=== PATIENT | female | born 1985 | race Caucasian/White ===

== ENCOUNTER → 2016-04-20 | Outpatient (CLI) | payer BC ==
[~2016-04-20] MED LIST: DOXY-300 PO; METH0.2T39 PO; MTR600X PO; NORE-18 PO; ONDA4TAB10 SL; OXYC-57 PO; PRENTAB26 PO
== END | disposition home or self-care (01) ==
LOC: C.LAB1850 11:04
PROVIDERS: ATTEND Obstetrics & Gynecology
DX: Z32.01 Encounter for pregnancy test, result positive (principal)

== ENCOUNTER → 2016-05-11 | Outpatient (CLI) | payer BC ==
[2016-05-11 14:23] LABS: URINE APPEARANCE CLOUDY (CLEAR); URINE BILIRUBIN NEG (NEG); URINE COLOR DK YELLOW; URINE EPITHELIAL CELL AUTO >30 /lpf (0-5); URINE NITRITE NEG (NEG); URINE PH 6.5 (4.5-7.5); URINE SPECIFIC GRAVITY 1.023 (1.000-1.030); UROBILINOGEN NEG (NEG)
[2016-05-11 14:26] LABS: MANUAL MICROSCOPIC REQUIRED? NO; REVIEW REQ? NO
== END | disposition home or self-care (01) ==
LOC: C.LABSPEC 13:38
PROVIDERS: ATTEND Obstetrics & Gynecology
DX: O09.299 Supervision of pregnancy with other poor reproductive or obstetric history, unspecified trimester (principal)

== ENCOUNTER → 2016-05-18 | Outpatient (CLI) | payer BC ==
[2016-05-21 01:54] LABS: CHLAMYDIA TRACH RNA*** NOT DETECTED (NOT DETECTED); GC (NEIS GONORRHOEAE)RNA** NOT DETECTED (NOT DETECTED)
== END | disposition home or self-care (01) ==
LOC: C.LABSPEC 17:04
PROVIDERS: ATTEND Obstetrics & Gynecology
DX: O09.00 Supervision of pregnancy with history of infertility, unspecified trimester (principal); Z3A.00 Weeks of gestation of pregnancy not specified

== ENCOUNTER → 2016-05-18 | Outpatient (CLI) | payer BC ==
[2016-05-18 14:43] LABS: BASO % 0.3 %; BASO ABS # 0.03 K/uL (0-0.2); COMPLETE YES; EOS % 3.2 %; HEMATOCRIT 39.5 % (37-47); IG% 0.2 %; LYMPH % 21.9 %; MEAN CELL VOLUME 85.3 fL (80-100); MEAN CORPUSCULAR HEMOGLOBIN 28.5 pg (25-34); MEAN CORPUSCULAR HGB CONC 33.4 g/dl (32-36); MEAN PLATELET VOLUME 13.6 fL (7.4-10.4); MONO % 8.1 %; NEUT % 66.3 %; PLATELET COUNT 186 K/uL (130-400); RED BLOOD COUNT 4.63 M/uL (4.2-5.4); WHITE BLOOD COUNT 9.58 K/uL (4.8-10.8)
== END | disposition home or self-care (01) ==
LOC: C.LAB1850 12:37
PROVIDERS: ATTEND Obstetrics & Gynecology
DX: O09.00 Supervision of pregnancy with history of infertility, unspecified trimester (principal); Z3A.00 Weeks of gestation of pregnancy not specified

== ENCOUNTER → 2016-06-07 | Outpatient (CLI) | payer BC ==
[2016-06-07 09:26] LABS: PATIENT HEIGHT 165.1 cm
[2016-06-07 10:13] LABS: URINE TOTAL PROTEIN 9.6 mg/dl (0-11.9)
[2016-06-07 10:20] LABS: URINE TOTAL PROTEIN CALC 105.6 mg/24 hr (0-149.1)
[2016-06-07 10:21] LABS: CREATININE 0.66 mg/dl (0.6-1.2)
== END ==
LOC: C.LAB 09:05
PROVIDERS: ATTEND Obstetrics & Gynecology
DX: O26.90 Pregnancy related conditions, unspecified, unspecified trimester (principal); Z3A.00 Weeks of gestation of pregnancy not specified

== ENCOUNTER → 2016-07-14 | Outpatient (CLI) | payer BC ==
[2016-07-14 13:43] LABS: GTGD 50 Grams
== END | disposition home or self-care (01) ==
LOC: C.LAB1850 09:57
PROVIDERS: ATTEND Obstetrics & Gynecology
DX: Z34.82 Encounter for supervision of other normal pregnancy, second trimester (principal)

== ENCOUNTER → 2016-10-02 | Outpatient (CLI) | payer BC ==
[2016-10-02 15:44] LABS: HEMATOCRIT 35.1 % (37-47)
[2016-10-02 16:37] LABS: GTGD 50 Grams
== END | disposition home or self-care (01) ==
LOC: C.LAB1850 13:47
PROVIDERS: ATTEND Obstetrics & Gynecology
DX: Z34.83 Encounter for supervision of other normal pregnancy, third trimester (principal)

== ENCOUNTER → 2016-10-02 | Outpatient (CLI) | payer BC ==
[2016-10-02 16:42] LABS: URINE APPEARANCE TURBID (CLEAR); URINE BILIRUBIN NEG (NEG); URINE COLOR DK YELLOW; URINE EPITHELIAL CELL AUTO >30 /lpf (0-5); URINE NITRITE NEG (NEG); URINE SPECIFIC GRAVITY 1.021 (1.000-1.030); UROBILINOGEN NEG (NEG)
[2016-10-02 16:49] LABS: MANUAL MICROSCOPIC REQUIRED? NO; REVIEW REQ? NO
== END | disposition home or self-care (01) ==
LOC: C.LABSPEC 15:57
PROVIDERS: ATTEND Obstetrics & Gynecology
DX: Z34.83 Encounter for supervision of other normal pregnancy, third trimester (principal)

== ENCOUNTER → 2016-10-10 | Outpatient (CLI) | payer BC | END | disposition home or self-care (01) | LOC: C.LAB 07:00 | PROVIDERS: ATTEND Obstetrics & Gynecology | DX: O28.1 Abnormal biochemical finding on antenatal screening of mother (principal); Z3A.00 Weeks of gestation of pregnancy not specified ==

== ENCOUNTER → 2016-10-31 | Outpatient (CLI) | payer BC ==
[2016-10-31 09:45] LABS: PATIENT HEIGHT 165.1 cm
[2016-10-31 10:05] LABS: MEAN CORPUSCULAR HGB CONC 32.8 g/dl (32-36)
[2016-10-31 10:17] LABS: MEAN CELL VOLUME 88.2 fL (80-100); MEAN CORPUSCULAR HEMOGLOBIN 28.9 pg (25-34); RED BLOOD COUNT 4.08 M/uL (4.2-5.4); WHITE BLOOD COUNT 10.97 K/uL (4.8-10.8)
[2016-10-31 10:32] LABS: URINE TOTAL PROTEIN 10.7 mg/dl (0-11.9)
[2016-10-31 10:36] LABS: PLATELET COUNT 112 K/uL (130-400)
[2016-10-31 10:37] LABS: BASO % 0.2 %; BASO ABS # 0.02 K/uL (0-0.2); COMPLETE YES; IG% 0.6 %; LARGE PLATELETS 1+; LYMPH % 14.7 %; LYMPH ABS # 1.61 K/uL (1.2-3.4); MONO % 4.6 %; NEUT % 78.9 %; PLT ESTIMATE NORMAL
[2016-10-31 10:44] LABS: URIC ACID 4.5 mg/dl (2.6-7.2)
[2016-10-31 11:22] LABS: CREATININE 0.7 mg/dl (0.6-1.2)
== END | disposition home or self-care (01) ==
LOC: C.LAB 09:30
PROVIDERS: ATTEND Obstetrics & Gynecology
DX: Z87.59 Personal history of other complications of pregnancy, childbirth and the puerperium (principal)

== ENCOUNTER → 2016-11-03 | Outpatient (CLI) | payer BC ==
[2016-11-03 16:08] LABS: ALT/SGPT 18 U/L (12-78); BLOOD UREA NITROGEN 8 mg/dl (7-18); BUN/CREATININE RATIO 11.4 (10-20); CALCIUM 9.2 mg/dl (8.5-10.1); CARBON DIOXIDE 24 mmol/L (21-32); CHLORIDE 106 mmol/L (98-107); CREATININE 0.73 mg/dl (0.60-1.20); GLUCOSE 84 mg/dl (70-99); POTASSIUM 3.9 mmol/L (3.5-5.1); SODIUM 138 mmol/L (136-145); URIC ACID 4.9 mg/dl (2.6-7.2)
[2016-11-03 16:12] LABS: ALB/GLOB RATIO 0.6 (0.9-2); ALKALINE PHOSPHATASE 127 U/L (45-117); AST/SGOT 16 U/L (15-37)
[2016-11-03 16:15] LABS: HEMATOCRIT 36.4 % (37-47); MEAN CELL VOLUME 87.3 fL (80-100); MEAN CORPUSCULAR HEMOGLOBIN 28.3 pg (25-34); MEAN CORPUSCULAR HGB CONC 32.4 g/dl (32-36); PLATELET COUNT 117 K/uL (130-400); RED BLOOD COUNT 4.17 M/uL (4.2-5.4); WHITE BLOOD COUNT 12.75 K/uL (4.8-10.8)
[2016-11-03 16:16] LABS: BASO % 0.2 %; BASO ABS # 0.02 K/uL (0-0.2); COMPLETE YES; EOS % 1.3 %; LYMPH % 16.2 %; LYMPH ABS # 2.06 K/uL (1.2-3.4); MONO % 8.7 %; NEUT % 72.6 %; PLT ESTIMATE NORMAL
== END | disposition home or self-care (01) ==
LOC: C.LAB1850 14:31
PROVIDERS: ATTEND Obstetrics & Gynecology
DX: Z87.59 Personal history of other complications of pregnancy, childbirth and the puerperium (principal)

== ENCOUNTER → 2016-11-09 | Outpatient (CLI) | payer BC ==
[2016-11-09 09:40] LABS: HEMATOCRIT 38.1 % (37-47); MEAN CELL VOLUME 88.2 fL (80-100); MEAN CORPUSCULAR HEMOGLOBIN 28.2 pg (25-34); RED BLOOD COUNT 4.32 M/uL (4.2-5.4); WHITE BLOOD COUNT 12.61 K/uL (4.8-10.8)
[2016-11-09 09:54] LABS: ALT/SGPT 19 U/L (12-78); AST/SGOT 16 U/L (15-37); BLOOD UREA NITROGEN 10 mg/dl (7-18); BUN/CREATININE RATIO 13.2 (10-20); CALCIUM 8.9 mg/dl (8.5-10.1); CARBON DIOXIDE 23 mmol/L (21-32); CHLORIDE 106 mmol/L (98-107); CREATININE 0.73 mg/dl (0.60-1.20); GLUCOSE 129 mg/dl (70-99); POTASSIUM 4.2 mmol/L (3.5-5.1); SODIUM 137 mmol/L (136-145)
[2016-11-09 09:57] LABS: ALB/GLOB RATIO 0.6 (0.9-2); ALKALINE PHOSPHATASE 141 U/L (45-117); URIC ACID 4.9 mg/dl (2.6-7.2)
[2016-11-09 09:59] LABS: PLATELET COUNT 119 K/uL (130-400)
[2016-11-09 10:03] LABS: BASO % 0.2 %; BASO ABS # 0.02 K/uL (0-0.2); COMPLETE YES; EOS % 1.5 %; IG% 0.7 %; LYMPH % 14.5 %; LYMPH ABS # 1.83 K/uL (1.2-3.4); MONO % 4.7 %; NEUT % 78.4 %; PLT ESTIMATE DECREASED
== END | disposition home or self-care (01) ==
LOC: C.LAB1850 07:53
PROVIDERS: ATTEND Obstetrics & Gynecology
DX: Z87.59 Personal history of other complications of pregnancy, childbirth and the puerperium (principal)

== ENCOUNTER → 2016-11-16 | Outpatient (CLI) | payer BC ==
[2016-11-16 09:39] LABS: MEAN CORPUSCULAR HGB CONC 32.2 g/dl (32-36)
[2016-11-16 09:57] LABS: ALT/SGPT 18 U/L (12-78); BLOOD UREA NITROGEN 10 mg/dl (7-18); BUN/CREATININE RATIO 11.8 (10-20); CARBON DIOXIDE 23 mmol/L (21-32); CHLORIDE 107 mmol/L (98-107); CREATININE 0.82 mg/dl (0.60-1.20); GLUCOSE 108 mg/dl (70-99); POTASSIUM 3.9 mmol/L (3.5-5.1); SODIUM 140 mmol/L (136-145)
[2016-11-16 10:00] LABS: ALB/GLOB RATIO 0.6 (0.9-2); ALKALINE PHOSPHATASE 144 U/L (45-117); AST/SGOT 17 U/L (15-37); URIC ACID 5.6 mg/dl (2.6-7.2)
[2016-11-16 10:11] LABS: MEAN CELL VOLUME 87.7 fL (80-100); MEAN CORPUSCULAR HEMOGLOBIN 28.2 pg (25-34); RED BLOOD COUNT 4.22 M/uL (4.2-5.4); WHITE BLOOD COUNT 10.73 K/uL (4.8-10.8)
[2016-11-16 10:16] LABS: BASO % 0.1 %; BASO ABS # 0.01 K/uL (0-0.2); COMPLETE YES; EOS % 1.7 %; GIANT PLATELETS 1+; IG% 0.9 %; LARGE PLATELETS 2+; LYMPH % 16.8 %; MONO % 4.8 %; NEUT % 75.7 %; PLATELET COUNT 99 K/uL (130-400); PLT ESTIMATE DECREASED
== END | disposition home or self-care (01) ==
LOC: C.LAB1850 08:03
PROVIDERS: ATTEND Obstetrics & Gynecology
DX: Z87.59 Personal history of other complications of pregnancy, childbirth and the puerperium (principal)

== ENCOUNTER → 2016-11-21 | Outpatient (CLI) | payer BC ==
[2016-11-21 12:46] LABS: MEAN CORPUSCULAR HGB CONC 31.8 g/dl (32-36)
[2016-11-21 13:13] LABS: HEMATOCRIT 37.7 % (37-47); MEAN CELL VOLUME 87.5 fL (80-100); MEAN CORPUSCULAR HEMOGLOBIN 27.8 pg (25-34); RED BLOOD COUNT 4.31 M/uL (4.2-5.4); WHITE BLOOD COUNT 11.74 K/uL (4.8-10.8)
[2016-11-21 13:27] LABS: PLATELET COUNT 96 K/uL (130-400); PLT ESTIMATE DECREASED
== END | disposition home or self-care (01) ==
LOC: C.LAB 09:57
PROVIDERS: ATTEND Obstetrics & Gynecology
DX: O99.113 Other diseases of the blood and blood-forming organs and certain disorders involving the immune mechanism complicating pregnancy, third trimester (principal); Z3A.00 Weeks of gestation of pregnancy not specified

== ENCOUNTER → 2016-11-27 | Outpatient (CLI) | payer BC ==
[2016-11-27 13:00] LABS: MEAN CORPUSCULAR HGB CONC 33.2 g/dl (32-36)
[2016-11-27 13:07] LABS: MEAN CELL VOLUME 86.7 fL (80-100); MEAN CORPUSCULAR HEMOGLOBIN 28.8 pg (25-34); RED BLOOD COUNT 4.27 M/uL (4.2-5.4); WHITE BLOOD COUNT 10.93 K/uL (4.8-10.8)
[2016-11-27 13:22] LABS: PLATELET COUNT 97 K/uL (130-400); PLT ESTIMATE DECREASED
== END | disposition home or self-care (01) ==
LOC: C.LAB1850 12:05
PROVIDERS: ATTEND Obstetrics & Gynecology
DX: O99.113 Other diseases of the blood and blood-forming organs and certain disorders involving the immune mechanism complicating pregnancy, third trimester (principal); D69.6 Thrombocytopenia, unspecified; Z3A.00 Weeks of gestation of pregnancy not specified

== ENCOUNTER → 2016-12-01 | Outpatient (CLI) | payer BC | END | disposition home or self-care (01) | LOC: C.LABSPEC 13:47 | PROVIDERS: ATTEND Obstetrics & Gynecology | DX: Z34.83 Encounter for supervision of other normal pregnancy, third trimester (principal); Z3A.00 Weeks of gestation of pregnancy not specified ==

== ENCOUNTER → 2016-12-04 | Outpatient (CLI) | payer BC ==
[2016-12-04 14:44] LABS: MEAN CORPUSCULAR HGB CONC 32.3 g/dl (32-36)
[2016-12-04 14:56] LABS: HEMATOCRIT 37.8 % (37-47); MEAN CELL VOLUME 87.1 fL (80-100); MEAN CORPUSCULAR HEMOGLOBIN 28.1 pg (25-34); RED BLOOD COUNT 4.34 M/uL (4.2-5.4); WHITE BLOOD COUNT 10.07 K/uL (4.8-10.8)
[2016-12-04 15:16] LABS: PLATELET COUNT 95 K/uL (130-400); PLT ESTIMATE DECREASED
== END | disposition home or self-care (01) ==
LOC: C.LAB1850 12:42
PROVIDERS: ATTEND Obstetrics & Gynecology
DX: O99.113 Other diseases of the blood and blood-forming organs and certain disorders involving the immune mechanism complicating pregnancy, third trimester (principal); Z87.59 Personal history of other complications of pregnancy, childbirth and the puerperium; Z3A.00 Weeks of gestation of pregnancy not specified

== ENCOUNTER → 2016-12-11 | Outpatient (CLI) | payer BC ==
[2016-12-11 13:29] LABS: MEAN CORPUSCULAR HGB CONC 32.5 g/dl (32-36)
[2016-12-11 13:42] LABS: HEMATOCRIT 38.1 % (37-47); MEAN CELL VOLUME 87.8 fL (80-100); MEAN CORPUSCULAR HEMOGLOBIN 28.6 pg (25-34); RED BLOOD COUNT 4.34 M/uL (4.2-5.4); WHITE BLOOD COUNT 10.51 K/uL (4.8-10.8)
[2016-12-11 13:55] LABS: PLATELET COUNT 88 K/uL (130-400)
== END | disposition home or self-care (01) ==
LOC: C.LAB1850 11:46
PROVIDERS: ATTEND Obstetrics & Gynecology
DX: O99.113 Other diseases of the blood and blood-forming organs and certain disorders involving the immune mechanism complicating pregnancy, third trimester (principal)

== ENCOUNTER 2016-12-21 07:10 | Inpatient (IN) | payer BC ==
--- NOTE | 2016-12-15 11:19 | PAT Medication Instructions ---
Service Date Dec 15, 2016. Current Home Medication List Multivit/Min/Iron/Fol Ac/Pren ( Vitamin), 1 TAB PO QAM Medication Instructions For Your Scheduled Surgery - Hold the following medications the morning of surgery: Multivit/Min/Iron/Fol Ac/Pren ( Vitamin), 1 TAB PO QAM If you have any questions please call us at [phone] or [phone] or [phone]
[2016-12-15 12:49] LABS: MEAN CORPUSCULAR HGB CONC 33.1 g/dl (32-36)
[2016-12-15 12:56] LABS: HEMATOCRIT 37.5 % (37-47); MEAN CELL VOLUME 86.6 fL (80-100); MEAN CORPUSCULAR HEMOGLOBIN 28.6 pg (25-34); RED BLOOD COUNT 4.33 M/uL (4.2-5.4)
[2016-12-15 13:01] LABS: INR 0.9 (0.9-1.1); PROTHROMBIN TIME (PATIENT) 9.4 SECONDS (9.0-12.0)
[2016-12-15 13:37] LABS: PLATELET COUNT 75 K/uL (130-400)
[2016-12-15 13:40] LABS: BASO % 0.2 %; BASO ABS # 0.02 K/uL (0-0.2); COMPLETE YES; EOS % 1.3 %; IG% 1.1 %; LYMPH % 17.8 %; LYMPH ABS # 1.82 K/uL (1.2-3.4); MONO % 9.2 %; NEUT % 70.4 %; PLT ESTIMATE DECREASED
--- NOTE | 2016-12-15 14:17 | HISTORY & PHYSICAL EXAMINATION ---
DATE OF ADMISSION: 12/21/2016 ADMITTING DIAGNOSES: 1. Complicated at 39 weeks gestational age. 2. Previous section. 3. Gestational thrombocytopenia. 4. Desired permanent surgical sterilization. HISTORY OF PRESENT ILLNESS: The patient is a 31-year-old 3, para 1 with an EDC of 25 December by dates and first trimester ultrasound who is admitted for repeat section with bilateral tubal ligation. The patient's has been remarkable for gestational thrombocytopenia diagnosed in the third trimester. The patient had had a mildly elevated blood pressure in the third trimester and had PIH labs drawn while her blood pressures have been normotensive for the remainder of the , her platelet count was noted to be mildly decreased at 103,000. Her platelet count has been followed weekly and is trending downward and her most recent platelet count was 88,000 prior to the day of admission. The patient's first was remarkable for a section for a breech presentation with gestational hypertension at term. The patient states that she had elevated blood pressures after delivery and was on blood pressure medications for 12 weeks . She has been normotensive since that delivery. The remainder of the patient's blood work shows a blood type of O positive, antibody negative, rubella immune, hepatitis B negative. She declined a quad screen. She had normal 1 hour Glucola at 16 weeks, elevated at 28 weeks with a normal 3-hour glucose tolerance test and she had a positive third trimester beta strep culture. PAST MEDICAL HISTORY: OBSTETRICAL: As above. DOWNSTAIRS MAID: Cryosurgery in 2005. MEDICAL: Reactive airways disease. SURGICAL: Duncan teeth extraction. ALLERGIES: CIPRO. SOCIAL HISTORY: No smoking. FAMILY HISTORY: Noncontributory. REVIEW OF SYSTEMS: As per HPI. PHYSICAL EXAMINATION: GENERAL: Shows a gravid female in no acute distress. VITAL SIGNS: Blood pressure of 120/82 and a weight of 220 pounds. HEENT EXAMINATION: Unremarkable. NECK: Supple. LUNGS: Clear. HEART: With a regular rhythm and rate. ABDOMEN: Gravid, vertex, positive heart tones, estimated weight of 7.5 pounds. PELVIC: Shows the cervix to be long, thick and closed. EXTREMITIES: Shows no deep calf tenderness, +2 pitting edema. NEUROLOGIC: DTRs are 2+. IMPRESSION: A 31-year-old 3, para 1 at 39+ weeks gestational age for term repeat section, bilateral tubal ligation and gestational thrombocytopenia. PLAN: CBC and PT/INR will be drawn on the morning of the section. It will be up to anesthesia to determine the mode of anesthesia whether regional or general based upon their interpretation of the clotting parameters. The risks, benefits and alternatives to the repeat section have been discussed while the benefits will be delivery of the baby, the risks are bleeding, infection, inadvertent injury to bowel or bladder, readmission or reoperation. We have also discussed tubal ligation and its permanent irreversible nature. We have discussed the risks of the procedure including failure at 1-3%. The patient understands all the above. The permit has been signed and she wishes to proceed.
[2016-12-21] VITALS (8 sets, daily range): BP systolic 133; BP diastolic 78–82; PULSE 48–56; TEMP 36.7–36.8; O2SAT 96–100; Ht 167.6 cm; Wt 100.2 kg
[~2016-12-21] VITALS: Ht 167.6 cm; Wt 100.2 kg
[~2016-12-21 07:10] MED LIST changes: +CEFAZOLIN IV 3,000 MG in DEXTROSE 5% 50ML IV SCH; +CITRIC ACID/SODIUM CITRATE 15 ML UDC PO SCH; -DOXY-300 PO; +LACTATED RINGER'S 1000ML 1,000 ML IV SCH; -METH0.2T39 PO; -MTR600X PO; -NORE-18 PO; -ONDA4TAB10 SL; -OXYC-57 PO; +PATIENT'S HEIGHT AND/OR WEIGHT NEEDED SCH
--- NOTE | 2016-12-21 07:26 | History & Physical Bridge Note ---
H&P Re-Evaluation Bridge Note: I have examined the patient, reviewed the History & Physical and in the interval since the performance of the History & Physical I have noted the following changes of clinical significance: I have discussed the case with Dr. Gaviria from Anesthesia. Specifically discussed her gestational thrombocytopenia. Pending CBC and PT/INR for the AM. Route of anesthesia will be decided between Dr. Gaviria and patient.
[2016-12-21] MEDS ORDERED: CITRIC ACID/SODIUM CITRATE 15 ML UDC PO SCH (07:30)
[2016-12-21 07:50] LABS: HEMATOCRIT 40.2 % (37-47); MEAN CELL VOLUME 87.2 fL (80-100); MEAN CORPUSCULAR HEMOGLOBIN 28.9 pg (25-34); RED BLOOD COUNT 4.61 M/uL (4.2-5.4); WHITE BLOOD COUNT 12.11 K/uL (4.8-10.8)
[2016-12-21 08:02] LABS: MEAN CORPUSCULAR HGB CONC 33.1 g/dl (32-36); PLATELET COUNT 90 K/uL (130-400)
[2016-12-21 08:06] LABS: BASO % 0.2 %; BASO ABS # 0.03 K/uL (0-0.2); COMPLETE YES; EOS % 1.9 %; GIANT PLATELETS 2+; IG% 1.1 %; LYMPH ABS # 2.78 K/uL (1.2-3.4); MONO % 7.4 %; NEUT % 66.4 %; PLT ESTIMATE DECREASED
[2016-12-21] MEDS ORDERED: PHENYLEPHRINE HCL INJ 10 MG/ML VIAL ONE (08:20)
[2016-12-21] MEDS ORDERED: EpHEDrine SULFATE INJ 50 MG/ML AMP ONE (08:20)
[2016-12-21] MEDS ORDERED: OXYTOCIN INJ 10 UNITS/ML VIAL ONE (08:20)
[2016-12-21 08:30] LABS: INR 0.9 (0.9-1.1); PROTHROMBIN TIME (PATIENT) 9.4 SECONDS (9.0-12.0)
[2016-12-21] MEDS ORDERED: MORPHINE SULFATE PF 2MG/2ML SYR ONE (08:53)
[2016-12-21] MEDS ORDERED: FENTANYL CITRATE INJ 50 MCG/1 ML 2 ML VIAL ONE (08:53)
[2016-12-21] MEDS ORDERED: SODIUM CHLORIDE 0.9% INJ 10 ML VIAL ONE (09:54)
[2016-12-21] MEDS ORDERED: GLYCOPYRROLATE INJ 0.2 MG/ML VIAL ONE (10:29)
[2016-12-21] MEDS ORDERED: ONDANSETRON INJ 2 MG/ML 2 ML VIAL ONE (10:40)
--- NOTE | 2016-12-21 11:12 | [facility] Operative Report ---
Operative Report Operative Date Dec 21, 2016. Pre-Operative Diagnosis 1. Term 2. Previous Caesarean Section 3. Desires Permanent Sterilization 4. Gestational Thrombocytopenia Post-Operative Diagnosis Same Procedure(s) Performed 1. Repeat Lower Uterine Transverse Caesarean Section for the of a viable male child at 1034. 2. Bilateral Tubal Ligation Surgeon Dr. Santoyo Internet Marketing Specialist Surgeon(s) Dr. Frederick Estimated Blood Loss 600 Findings Viable male , APGARS 9/9, 8 lbs 4 oz. Normal-appearing uterus, fallopian tubes, and ovaries bilaterally. Fluids 1500 Specimens 1. Placenta: Hold 2. Cord Blood Obtained 3. Venous and Arterial Cord Gases Obtained 4. Right and Left Portion of Fallopian Tubes Obtained Drains Beckett, clear urine, 150 mL Anesthesia Spinal Complication(s) None Disposition L&D I attest to the content of the Intraoperative Record and any orders documented therein. Any exceptions are noted below.
[2016-12-21] MEDS ORDERED: BENZOCAINE 20% AER SPR 82.5 GM CAN EXT PRN (11:15)
[2016-12-21] MEDS ORDERED: DIPHTHERIA/TETANUS/PERTUSSIS 0.5 ML SYR/VIAL IM. ONE (11:15)
[2016-12-21] MEDS ORDERED: SUPERCREAM 0.870 % 15GM JAR EXT PRN (11:15)
[2016-12-21] MEDS ORDERED: LANOLIN OINT EXT PRN ×2 (11:15)
[2016-12-21] MEDS ORDERED: SENNA 8.6 MG TAB PO PRN (11:15)
[2016-12-21] MEDS ORDERED: MAGNESIUM HYDROXIDE SUSP 30 ML UDC PO PRN (11:15)
[2016-12-21] MEDS ORDERED: HYDROCORTISONE ACETATE 25 MG SUPP PR PRN (11:15)
[2016-12-21] MEDS ORDERED: NALOXONE HCL INJ 1 MG in SODIUM CHLORIDE 0.9% 1000ML 1,000 ML IV PRN ×4 (11:19)
[2016-12-21] MEDS ORDERED: NALOXONE HCL INJ 0.08 MG in SYRINGE 1.8 ML IV PRN (11:19)
[2016-12-21] MEDS ORDERED: SODIUM CHLORIDE 0.9% 1000ML 1,000 ML IV PRN (11:19)
[2016-12-21] MEDS ORDERED: LACTATED RINGER'S 1000ML 500 ML IV PRN (11:19)
[2016-12-21] MEDS ORDERED: NALBUPHINE HCL INJ 10 MG/ML AMP IV PRN (11:30)
[2016-12-21] MEDS ORDERED: NO NARCOTICS OR SEDATIVES SCH (11:30)
[2016-12-21] MEDS ORDERED: ACETAMINOPHEN 1000 MG/100 ML IV IV ONE (11:30)
[2016-12-21] MEDS ORDERED: NALOXONE HCL 0.4 MG/1 ML VIAL/CARP IV PRN (11:30)
[2016-12-21] MEDS ORDERED: METOCLOPRAMIDE HCL INJ 20 MG in SODIUM CHLORIDE 0.9% 50ML 50 ML IV PRN (11:30)
[2016-12-21] MEDS ORDERED: EpHEDrine SULFATE INJ 50 MG/ML AMP IV PRN ×2 (11:30)
[2016-12-21] MEDS ORDERED: PROMETHAZINE HCL INJ 25 MG in SODIUM CHLORIDE 0.9% 50ML 50 ML IV PRN (11:30)
[2016-12-21] MEDS ORDERED: MEPERIDINE HCL 25 MG/ML CARP IV PRN (11:30)
[2016-12-21] MEDS ORDERED: PROMETHAZINE HCL INJ 12.5 MG in SODIUM CHLORIDE 0.9% 50ML 50 ML IV PRN (11:30)
[2016-12-21] MEDS ORDERED: ONDANSETRON INJ 2 MG/ML 2 ML VIAL IV PRN ×2 (11:30)
[2016-12-21] MEDS ORDERED: MoRPHine SULFATE PF 1 MG/ML 10 ML AMP/VIAL EPI PRN (11:30)
[2016-12-21] MEDS ORDERED: DiphenhydrAMINE HCL 50 MG/ML VIAL IV PRN (11:30)
[2016-12-21] MEDS ORDERED: KETOROLAC TROMETHAMINE 30 MG/ML VIAL IV. PRN (11:30)
[2016-12-21] MEDS ORDERED: ATROPINE SULFATE 0.1 MG/ML 5ML SYR IV PRN (11:30)
[2016-12-21] MEDS ORDERED: MoRPHine SULFATE 2 MG/ML CARP IV PRN (11:30)
[2016-12-21] MEDS: OXYTOCIN INJ 20 UNITS in LACTATED RINGER'S 1000ML 1,000 ML IV SCH ×3 (11:40→21:33)
[2016-12-21] MEDS: SIMETHICONE 80 MG CHEW PO SCH ×3 (12:15→19:49)
--- NOTE | 2016-12-21 14:24 | Anesthesiology Progress Note ---
Anesthesia Post Op Note Date & Time Dec 21, 2016 at 14:23 Vital Signs Pain Intensity: 4.0 Notes Mental Status: alert / awake / arousable, participated in evaluation Pt Amnestic to Procedure: Yes Nausea / Vomiting: adequately controlled Pain: adequately controlled Airway Patency, RR, SpO2: stable & adequate BP & HR: stable & adequate Hydration State: stable & adequate Neuraxial Anesthesia: was administered, sensory block is resolving Anesthetic Complications: no major complications apparent
[2016-12-21] MEDS: KETOROLAC TROMETHAMINE 30 MG/ML VIAL IV. PRN (19:50)
--- NOTE | 2016-12-21 22:17 | OPERATIVE REPORT ---
DATE OF OPERATION: 12/21/2016 PREOPERATIVE DIAGNOSES: 1. Term . 2. Previous section. 3. Desired permanent surgical sterilization. 4. Gestational thrombocytopenia. POSTOPERATIVE DIAGNOSES: Same. PROCEDURES PERFORMED: 1. Repeat low cervical transverse section. 2. Bilateral tubal ligation. SURGEON: Matty Santoyo MD FINISHER HOT STRIP: Delgado Frederick MD ANESTHESIA: Spinal. FINDINGS: Viable male with Apgars of 8 and 9, and weight of 8 pounds 4 ounces. Arterial and venous cord gases are pending. Normal appearing tubes and ovaries bilaterally. Bilateral segment of fallopian tube removed and sent for pathological evaluation. PROCEDURE IN DETAIL: The patient was taken to the operating room and after spinal anesthesia was placed in supine position and draped and prepped in the usual fashion. Pfannenstiel type incision through previous surgical scar was made. Underlying subcutaneous tissue was dissected down to the ventral abdominal fascia, which was nicked and opened in a horizontal manner. Preperitoneal fascia was dissected away until the peritoneal cavity was entered and opened in a vertical manner. Bladder blade was placed. Peritoneum overlying the uterus was elevated, opened in a semi-lunar fashion, the inferior margin of which was taken down creating the bladder flap. The uterus was entered sharply and extended in a semi-lunar fashion manually. Viable male infant was delivered. Cord was clamped and cut and the baby was passed off to pediatrics who was in attendance for the delivery. Cord gases, cord blood samples obtained. Placenta delivered spontaneously and the uterus exteriorized. The uterine cavity was wiped clean of any residual blood tissue and/or clot. The uterine incision was then closed with 2 layers of 4-0 Vicryl, the first a running locking stitch, the second an imbricating stitch. Hemostasis achieved. Dissection was then turned to the adnexa bilaterally. The right fallopian tube was isolated followed to the fimbriated end, a segment of which was elevated, doubly ligated with 0 plain suture, cut and removed from the field. In a similar fashion, the left fallopian tube was isolated followed to the fimbriated end, a segment of which was elevated, doubly ligated with 0 plain suture, cut and removed from the field. Hemostasis present. The uterus was returned to the pelvic cavity. The pericolic gutters were cleared bilaterally of the blood tissue and/or clot. The uterine incision and both tubal stumps were examined and hemostasis was present. Sponge and needle count was correct. The rectus muscle was then plicated in the midline with a running 2-0 Vicryl stitch. The fascia was closed laterally to the midline with a running 0 Vicryl suture. Subcutaneous tissue was irrigated with warm saline and the skin incision was closed with a 4-0 Monocryl subcuticular suture. Sterile dressing was applied and the patient was taken to the recovery room in satisfactory condition. I attest to the content of the Intraoperative Record and any orders documented therein. Any exceptions are noted below. MTDD
[2016-12-22] VITALS (9 sets, daily range): BP systolic 108–124; BP diastolic 72–77; PULSE 60–81; TEMP 36.7–37; O2SAT 95–99
[2016-12-22] MEDS: KETOROLAC TROMETHAMINE 30 MG/ML VIAL IV. PRN (01:20)
[2016-12-22] MEDS ORDERED: PROMETHAZINE HCL INJ 25 MG in SODIUM CHLORIDE 0.9% 50ML 50 ML IV PRN (04:30)
[2016-12-22] MEDS ORDERED: DC INTRASPINAL MORPHINE SCH (04:30)
[2016-12-22] MEDS ORDERED: ONDANSETRON INJ 2 MG/ML 2 ML VIAL IV PRN (04:30)
[2016-12-22] MEDS ORDERED: OXYCODONE/ACETAMINOPHEN 5-325 TAB PO PRN (04:30)
[2016-12-22] MEDS ORDERED: KETOROLAC TROMETHAMINE 30 MG/ML VIAL IV. PRN (04:30)
[2016-12-22] MEDS ORDERED: DiphenhydrAMINE HCL 50 MG/ML VIAL IV PRN (04:30)
--- NOTE | 2016-12-22 05:55 | OB/GYN Progress Note ---
INSPECTOR FINISHING Progress Note Date of Service Dec 22, 2016. Subjective conversation w/ patient, physical exam, chart review, lab review Ambulation: limited ambulation (to bathroom) Passing Gas: Yes Diet Tolerance: Clear Liquids Lochia: Small Feeding Type: Bottle Feeding Pain: Minimal low cramping Notes: - Beckett out this morning, pending void. Review of Systems Constitutional: No fever, No chills Respiratory: No cough, No shortness of breath Cardiac: + edema, No chest pain Abdomen: No nausea, No vomiting, No diarrhea Female : No dysuria Objective Vital Signs Date Time Temp Pulse Resp B/P (MAP) Pulse Ox O2 Delivery O2 Flow Rate FiO2 12/22/16 05:30 36.8 60 18 124/77 (93) 99 Room Air 12/22/16 05:30 18 99 12/22/16 04:00 16 99 12/22/16 03:00 16 95 12/22/16 02:00 16 96 12/22/16 01:00 Room Air 12/22/16 01:00 18 98 12/22/16 00:00 18 97 12/21/16 22:40 18 96 12/21/16 21:40 16 96 12/21/16 20:40 18 99 12/21/16 19:40 18 99 12/21/16 19:05 36.8 56 18 133/78 (96) 99 Room Air 12/21/16 18:40 20 96 12/21/16 17:40 18 100 12/21/16 16:40 98 Room Air 12/21/16 16:40 18 98 12/21/16 16:40 36.7 48 18 133/82 (99) 98 Room Air 12/21/16 16:40 Room Air Physical Exam General Appearance: WD/WN, NO APPARENT DISTRESS Respiratory/Chest: lungs clear, normal breath sounds, no respiratory distress Cardiovascular: regular rate, rhythm, no murmur Abdomen: non tender, soft, no organomegaly Fundus: Firm, Non-Tender, Relation to Umbilicus (At umbilicus) Incision Description: Clean, Dry & Intact (dressing) Extremities: non-tender, + pedal edema (minimal (B) edema) Laboratory Results Last 24 Hours Test 12/21/16 07:30 12/21/16 08:06 White Blood Count 12.11 K/uL Red Blood Count 4.61 M/uL Hemoglobin 13.3 g/dL Hematocrit 40.2 % Mean Corpuscular Volume 87.2 fL Mean Corpuscular Hemoglobin 28.9 pg Mean Corpuscular Hemoglobin Concent 33.1 g/dl Platelet Count 90 K/uL Neutrophils (%) (Auto) 66.4 % Lymphocytes (%) (Auto) 23.0 % Monocytes (%) (Auto) 7.4 % Eosinophils (%) (Auto) 1.9 % Basophils (%) (Auto) 0.2 % Neutrophils # (Auto) 8.04 K/uL Lymphocytes # (Auto) 2.78 K/uL Monocytes # (Auto) 0.90 K/uL Eosinophils # (Auto) 0.23 K/uL Basophils # (Auto) 0.03 K/uL RDW Standard Deviation 46.4 fL RDW Coefficient of Variation 14.7 % Immature Granulocyte % (Auto) 1.1 % Immature Granulocyte # (Auto) 0.13 K/uL Platelet Estimate DECREASED Giant Platelets 2+ Prothrombin Time 9.4 SECONDS Prothromb Time International Ratio 0.9 Assessment and Plan Post-Op Day Number: 1 Continue Routine Care: 31F s/p scheduled repeat and bilateral tubal ligation, now PPD #1. - Blood type O positive. GBS positive. Rubella immune. - Vital signs reviewed and stable. - Pain controlled with toradol, tylenol, and percocet. - No leg swelling or tenderness on calf palpation. Encourage ambulation. - Pt is bottle feeding. - Hemoglobin pre-delivery 13.3, post-delivery pending this am. Bleeding has improved. Continue to monitor clinically. - Hx gestational thrombocytopenia. Platelets pre-delivery 90, post-delivery pending this am. - Continue routine post delivery care. - Pt agreed with above plan, all current questions answered. Delgado Frederick MD, PGY1 Stave Cutting Supervisor Physician Supervision Note: I interviewed and examined the patient. Discussed with Dr. Frederick and agree with findings and plan as documented in the note. Any exceptions or clarifications are listed here: [None] Documented By: Tanika Orellana Resident Tracking Resident Involvement: Resident Care Provided Care Provided: OB Delivery (OB rounds)
[2016-12-22] MEDS: OXYCODONE/ACETAMINOPHEN 5-325 TAB PO PRN ×5 (05:56→23:36)
[2016-12-22 06:46] LABS: MEAN CORPUSCULAR HGB CONC 32.2 g/dl (32-36)
[2016-12-22 06:52] LABS: HEMATOCRIT 34.5 % (37-47); MEAN CELL VOLUME 88.5 fL (80-100); MEAN CORPUSCULAR HEMOGLOBIN 28.5 pg (25-34); WHITE BLOOD COUNT 16.71 K/uL (4.8-10.8)
[2016-12-22 07:07] LABS: PLATELET COUNT 64 K/uL (130-400)
[2016-12-22 07:10] LABS: BASO % 0.1 %; BASO ABS # 0.02 K/uL (0-0.2); COMPLETE YES; EOS % 0.3 %; IG% 0.8 %; LYMPH % 8.3 %; LYMPH ABS # 1.38 K/uL (1.2-3.4); MONO % 6.3 %; NEUT % 84.2 %; TOXIC GRANULATION 1+
[2016-12-22] MEDS: PRENATAL VITAMIN TAB PO SCH (08:50)
[2016-12-22] MEDS: FERROUS SULFATE 325 MG TAB PO SCH (08:50)
[2016-12-22] MEDS: SIMETHICONE 80 MG CHEW PO SCH ×4 (08:50→19:27)
[2016-12-22] MEDS: IBUPROFEN 600 MG TAB PO PRN ×4 (09:28→23:36)
[2016-12-22] MEDS ORDERED: BISACODYL 5 MG TABEC ONE (19:29)
[2016-12-22] MEDS ORDERED: BISACODYL 5 MG TABEC PO ONE (22:00)
[2016-12-23] MEDS: IBUPROFEN 600 MG TAB PO PRN ×4 (06:27→22:21)
[2016-12-23] MEDS: OXYCODONE/ACETAMINOPHEN 5-325 TAB PO PRN ×4 (06:28→22:21)
[2016-12-23 06:47] LABS: HEMATOCRIT 33.2 % (37-47)
[2016-12-23 07:22] VITALS: BP 121/76; PULSE 70; TEMP 36.7; O2SAT 95
--- NOTE | 2016-12-23 07:47 | Progress Note ---
Subjective Dec 23, 2016. Subjective conversation w/ patient, physical exam, chart review, lab review Ambulation: ambulating normally Voiding: no voiding problems Diet Tolerance: Regular Diet Lochia: Moderate Objective Vital Signs Date Time Temp Pulse Resp B/P (MAP) Pulse Ox O2 Delivery O2 Flow Rate FiO2 12/22/16 23:00 36.7 72 16 108/72 (84) 96 Room Air 12/22/16 23:00 Room Air 12/22/16 15:15 96 Room Air 12/22/16 08:30 97 Room Air 12/22/16 08:30 37.0 81 16 111/75 (87) 97 Room Air Physical Exam General Appearance: WELL-APPEARING Respiratory/Chest: lungs clear Abdomen: non tender Fundus: Firm Incision Description: Clean, Dry & Intact Extremities: no calf tenderness Laboratory Results Last 24 Hours Test 12/23/16 06:10 Hemoglobin 10.3 g/dL Hematocrit 33.2 % Assessment and Plan Problem List Medical Problems: (1) Asthma Status: Chronic Post-Op Day#: 2 Continue Routine Care: plts 62 yest, will repeat cbc today
[2016-12-23] MEDS: FERROUS SULFATE 325 MG TAB PO SCH (08:16)
[2016-12-23] MEDS: SIMETHICONE 80 MG CHEW PO SCH ×4 (08:16→20:16)
[2016-12-23] MEDS: PRENATAL VITAMIN TAB PO SCH (08:16)
[2016-12-23 10:20] LABS: PLATELET COUNT 98 K/uL (130-400); RED BLOOD COUNT 3.66 M/uL (4.2-5.4)
[2016-12-23 10:21] LABS: PLT ESTIMATE DECREASED
[2016-12-23] MEDS ORDERED: BISACODYL 10 MG SUPP PR PRN (11:15)
[2016-12-23 16:00] VITALS: BP 127/83; PULSE 103; TEMP 36.8
[2016-12-23 16:13] VITALS: BP 130/88; PULSE 102; TEMP 37.1; O2SAT 100
[2016-12-23 16:17] VITALS: O2SAT 100
--- NOTE | 2016-12-23 20:04 | Discharge Instructions ---
Discharge Instructions Date of Service Dec 23, 2016. Admission Reason for Admission: Previous Section, Desires Sterilization Discharge Discharge Diagnosis / Problem: recovery from Discharge Goals Goal(s): Routine recovery after Activity Recommendations Activity Limitations: per Instructions/Follow-up section . Instructions / Follow-Up Instructions / Follow-Up ACTIVITY RECOMMENDATIONS: * Gradual return to full activity over the next 2-3 weeks. * No lifting - nothing heavier than baby over the next 2-3 weeks. * Do not engage in vigorous exercise, sexual activity or sports until cleared by your physician. * Do not drive or operate any motorized equipment until cleared by your physician. * You may shower/bathe daily. MEDICATIONS: For discomfort or pain, you may use Acetaminophen (Tylenol), Ibuprofen (Advil), or Naproxen (Aleve) following the package directions. For constipation you may use Colace following the package directions. BREAST CARE: If you are not breast feeding: * Wear a supportive bra 24 hours a day for one to two weeks. * Avoid stimulating your breasts and nipples as much as possible during the first few weeks after delivery. * When taking a shower, have the warm water hit your back, not breasts. * When your breasts feel full, apply ice packs. Usually three to four times a day helps ease the discomfort. * Take a mild pain medication (Tylenol / Motrin) when you are uncomfortable. If breast feeding: * Use breast milk to lubricate nipples. Lansinoh cream may be used for sore nipples. You do not need to remove cream prior to breast feeding. If using a different brand of cream, check the label for directions regarding removal of cream prior to nursing. * Wear a supportive bra. * If having problems with breasts or breast feeding, call a sales and service consultant or your health care provider. SPECIAL CARE INSTRUCTIONS: When you are discharged from the hospital, it is important for you to follow the instructions listed below: * During the first week at home, you should be able to care for yourself and your baby. In addition, the usual light household activities are encouraged. * Limit your activities to the way you feel. Do not try to clean the house or move furniture. Be sensible. * If you actively engage in sports and have done so up until the time of your delivery, you may resume these activities as soon as you feel able. This may take up to one month or even longer. Use good judgment. * Continue to take your vitamins for at least six weeks after the of your baby. * Your diet need not be limited unless you were on a special diet before your delivery. Breast-feeding mothers need around 2500 calories per day and at least 64-80 ounces of fluid per day (8 to 10 glasses). * You should eat foods from the four major food groups. Crash diets or fad diets are to be avoided. Eating lean meats, fresh fruits and vegetables, low-fat dairy products, high fiber foods and a regular exercise program, will help you get back to your pre- weight without putting your health at risk. * Constipation is sometimes a problem after delivery. Take a mild laxative as needed. If breast feeding, Milk of Magnesia is acceptable to use. You may use a suppository or Fleets enema. * A daily shower or tub bath is suggested. Wash incision daily with warm soapy water and pat dry. It doesn't need to be covered unless drainage is present. * A bloody vaginal discharge will usually continue until around four weeks . A small amount of bleeding may continue for as long as six weeks. Vaginal discharge changes from the bright red bleeding after delivery to pink then brownish and finally yellowish-pink before becoming white and disappearing. * Bleeding may increase with activity. Your first period may come in 4-8 weeks. If you are breast feeding, your period may be delayed even longer. * [place] (sex) can begin whenever both you and your partner feel comfortable and do not have any form of genital infection. It is recommended that you wait at least six weeks for internal and external healing to occur. If you have questions, please talk to your health care practitioner. A condom should be used to prevent infection and . * Foreplay, gentle intercourse and lubrication is very important the first several times to prevent pain. A water-based lubricant such as K-Y jelly or Astroglide may be used. * If you have RH negative blood and your baby is RH positive, you will receive RHOGAM by injection prior to discharge. The nurse will give you a card to keep with you that has the date and place that you received RHOGAM after delivery. * During your care, you had a Rubella screen done to check for the presence of rubella antibodies in your blood. If your test was negative, you will receive a Rubella vaccine prior to discharge. This vaccine may cause a fever, soreness at the injection site and flu-like symptoms. If these symptoms persist, notify your health care practitioner. is not advised for one month after a Rubella vaccine. * Verbalizes understanding of car seat law as reviewed with patient nursing. * Car Seat hand-out given and reviewed with patient by nursing. * Shaken baby information reviewed with patient by nursing. Call you doctor if: * Heavy bleeding (saturating several pads an hour) or passing clots the size of your fist. * A fever >101 degrees F (38.3 degrees C) on two occasions four hours apart and /or chills. * Unusual pain in the pelvic or vaginal areas. * Call the doctor for any increased redness, drainage or swelling around the incision and any pain unrelieved by prescribed pain medication. * "Baby Blues" lasting longer than two weeks. If you have any questions or concerns, call your health care practitioner at . FOLLOW UP VISIT: * Please call the office at to schedule a 6 week examination. It is important you keep this appointment. It is important for you to make arrangements for either yearly or twice yearly check-ups thereafter. Current Hospital Diet Patient's current hospital diet: Regular OB Diet Discharge Diet Recommended Diet: Regular OB Diet Procedures Procedures Performed: 1. Repeat Lower Uterine Transverse Caesarean Section for the of a viable male child at 1034. 2. Bilateral Tubal Ligation Pending Studies Studies pending at discharge: no Medical Emergencies . Who to Call and When: Medical Emergencies: If at any time you feel your situation is an emergency, please call [phone] immediately. . Non-Emergent Contact Non-Emergency issues call your: Repair Servicer . . "Provider Documentation" section prepared by Brittany Graham. . VTE Core Measure Inpt VTE Proph given/why not?: Treatment not indicated
[2016-12-24] MEDS ORDERED: MTR600X PO (05:27)
[2016-12-24] MEDS ORDERED: OXYC-57 PO (05:27)
[2016-12-24] MEDS: IBUPROFEN 600 MG TAB PO PRN ×2 (05:42→09:55)
[2016-12-24 07:30] VITALS: BP 135/87; PULSE 87; TEMP 36.8; O2SAT 96
--- NOTE | 2016-12-24 07:43 | OB/GYN Progress Note ---
GUEST REQUEST RUNNER Progress Note Date of Service Dec 24, 2016. 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 Review of Systems Constitutional: No fever, No chills Respiratory: No cough, No shortness of breath Cardiac: No chest pain, No edema Abdomen: No nausea, No vomiting, No diarrhea Female : No dysuria Objective Vital Signs Date Time Temp Pulse Resp B/P (MAP) Pulse Ox O2 Delivery O2 Flow Rate FiO2 12/23/16 23:25 Room Air 12/23/16 16:17 100 Room Air 12/23/16 16:13 37.1 102 18 130/88 (102) 100 Room Air 12/23/16 16:00 36.8 103 18 127/83 (98) Room Air 12/23/16 08:15 Room Air Physical Exam General Appearance: WELL-APPEARING, WD/WN Respiratory/Chest: lungs clear, normal breath sounds, no respiratory distress Cardiovascular: regular rate, rhythm, no murmur Abdomen: normal bowel sounds, non tender, soft Fundus: Firm, Non-Tender Extremities: non-tender, no calf tenderness Assessment and Plan Post-Op Day Number: 3 Continue Routine Care: Resident Physician Supervision Note: I interviewed and examined the patient. Discussed with Dr. Frederick and agree with findings and plan as documented in the note. Any exceptions or clarifications are listed here: [None] Documented By: Brittany Lawler [facility] 31F s/p scheduled repeat and bilateral tubal ligation, now PPD #3. - Blood type O positive. GBS positive. Rubella immune. - Vital signs reviewed and stable. - Pain controlled with motrin & perocet. - No leg swelling or tenderness on calf palpation. Encourage ambulation. - Encourage breast feeding. - Hemoglobin pre-delivery 13.3, post-delivery 11.1 & 10.3. Continue to monitor clinically. - Hx gestational thrombocytopenia. Platelets pre-delivery 90, post-delivery trended and last 98. - Continue routine post delivery care. D/c instructions reviewed with pt. - Pt agreed with above plan, all current questions answered. Delgado Frederick MD, PGY1 Skid Worker Tracking Resident Involvement: Resident Care Provided Care Provided: OB Delivery (OB rounds)
[2016-12-24] MEDS: SIMETHICONE 80 MG CHEW PO SCH (08:20)
[2016-12-24] MEDS: FERROUS SULFATE 325 MG TAB PO SCH (08:20)
[2016-12-24] MEDS: PRENATAL VITAMIN TAB PO SCH (08:20)
[2016-12-24 10:55] VITALS: BP_DIAS 87; PULSE 87; TEMP 36.8
--- NOTE | 2016-12-26 00:10 | DISCHARGE SUMMARY ---
ADMITTING DIAGNOSES: 1. Complicated at 39 weeks gestational age. 2. Previous section. 3. Gestational thrombocytopenia. 4. Desired permanent surgical sterilization. DISCHARGE DIAGNOSES: Same. PROCEDURES PERFORMED: 1. Repeat low cervical transverse section. 2. Bilateral tubal ligation. DISCHARGE MEDICATIONS: 1. Percocet 5/325 1-2 p.o. q. 4-6 hours p.r.n. pain. 2. Motrin 600 mg p.o. q. 6 hours p.r.n. pain. ADMISSION HISTORY: The patient is a 31-year-old 3, para 1 with an EDC of 25 December by dates and first trimester ultrasound, who is admitted for repeat section with bilateral tubal ligation. The patient's has been remarkable for gestational thrombocytopenia diagnosed in the third trimester. The patient had a mildly elevated blood pressure in the third trimester and had PIH labs drawn. While her blood pressures became normotensive for the remainder of the , her platelet count was noted to be mildly decreased at 103,000. Her platelet count has been followed weekly and is trending downward with her most recent platelet count 88,000 prior to the day of admission. The patient's first was remarkable for section for breech presentation with gestational hypertension at term. The patient states that she had elevated blood pressures after delivery and was on blood pressure medications for 12 weeks . She has been normotensive since that delivery. The remainder of patient's blood work shows a blood type of O positive, antibody negative, rubella immune, hepatitis B negative. She declined a quad screen. She had a normal 1 hour Glucola at 16 weeks, elevated at 28 weeks with a normal 3-hour glucose tolerance test, and she had a positive third trimester beta strep culture. ADMISSION PHYSICAL EXAMINATION: GENERAL: Showed a gravid female in no acute distress. VITAL SIGNS: Blood pressure 120/82 and weight of 220 pounds. HEENT: Unremarkable. NECK: Supple. LUNGS: Clear. HEART: Regular rhythm and rate. ABDOMEN: Gravid, vertex, positive heart tones, estimated weight of 7.5 pounds. PELVIC: Showed the cervix to be long, thick and closed. EXTREMITIES: Showed no deep calf tenderness with 2+ pitting edema. NEUROLOGIC: DTRs were 2+. ADMISSION LABORATORY VALUES: Showed an H&H of 13.3 and 40.2 with a platelet count of 90,000. Coagulation panel showed a normal PT/INR. HOSPITAL COURSE: Anesthesia was advised of the gestational thrombocytopenia and counseled patient on the risks and benefits of regional anesthesia. Anesthesia felt comfortable performing a spinal, and patient was taken to the operating room and underwent the above listed procedures. Operative findings showed a viable male infant with Apgars of 8 and 9, weight of 8 pounds 4 ounces, normal appearing tubes and ovaries bilaterally. Bilateral segment of fallopian tube removed and sent for pathological evaluation. Postoperatively, patient did well. Beckett catheter was removed on the first postoperative day. On the first postoperative day H&H was 11.1 and 34.5, platelets were now down to 64,000. There was no spontaneous bleeding. On the second postoperative day, though the platelets had climbed to 98,000 and patient was hemodynamically stable. She was discharged home on the third postoperative day with the routine discharge instructions and the prescriptions for the medications as listed as above. She will follow up in the office in 2 weeks' time for postoperative check but as always she has been instructed to call with any questions, problems or difficulties.
== END 2016-12-24 10:55 | disposition home or self-care (01) | DRG 765 ==
LOC: C.LD 07:10 → EDSTATUS 07:30 → C.OBG 16:35
PROVIDERS: ADMIT Obstetrics & Gynecology; ATTEND Obstetrics & Gynecology
PROC: 0UB70ZZ Excision of Bilateral Fallopian Tubes, Open Approach (ICD-10-PCS; principal; 2016-12-21 09:00)
PROC: 10D00Z1 Extraction of Products of Conception, Low, Open Approach (ICD-10-PCS; principal; 2016-12-21 09:00)
DX: O34.211 Maternal care for low transverse scar from previous cesarean delivery (principal); O99.12 Other diseases of the blood and blood-forming organs and certain disorders involving the immune mechanism complicating childbirth; O99.824 Streptococcus B carrier state complicating childbirth; D69.6 Thrombocytopenia, unspecified; Z3A.39 39 weeks gestation of pregnancy; Z30.2 Encounter for sterilization; Z37.0 Single live birth

== ENCOUNTER 2016-12-28 14:59 | Emergency (ER) | payer BC ==
[~2016-12-28] VITALS: Ht 167.6 cm; Wt 86.0 kg
[~2016-12-28 14:59] MED LIST changes: -DOXY-300 PO; -METH0.2T39 PO; -ONDA4TAB10 SL
[2016-12-28 15:22] VITALS: TEMP 37.2; Ht 167.6 cm; Wt 86.0 kg
[2016-12-28] MEDS ORDERED: SODIUM CHLORIDE 0.9% 1000ML 1,000 ML IV STA (15:32)
[2016-12-28] MEDS ORDERED: ONDANSETRON INJ 2 MG/ML 2 ML VIAL IV STA (15:32)
--- NOTE | 2016-12-28 15:38 | EMERGENCY ROOM VISIT NOTE ---
History Report prepared by Ramiro: Pancho Camacho Under the Supervision of: Dr. Edmond Willis M.D. First contact with patient: 15:08 Chief Complaint: VAGINAL BLEEDING Stated Complaint: VAG BLEEDING History of Present Illness The patient is a 31 year old white female with a past medical history of tubal ligation, who presents to the ED with a cc of intermittent vaginal bleeding beginning 0800. She rates her discomfort as a 5/10 in severity. The patient admits that she recently had a and had an incision check four days ago. She states that she experienced no vaginal bleeding until 0800 this morning. The patient reports that she noticed that she was vaginally bleeding with bright, dark, red clots. She states that she went to her appointment this morning for an incision check and had a low platelet count. The patient reports that they told her to go home and put her feet up. She states that her vaginal bleeding continued, which caused her to use 2-3 pads an hour. The patient states that she used Advil for her symptoms. Positive lightheadedness, tachycardia. Negative falls, trauma, abdominal pain, ecchymosis, other bleeding , rashes Source of History: patient Onset: today Position: other (vaginal area) Symptom Intensity: 5/10 Quality: other (clot, dark, bright red bleeding) Timing: intermittent Modifying Factors (Worsening): other (standing up) Associated Symptoms: No abdominal pain, No rash Review of Systems See HPI for pertinent positives and negatives. A total of ten systems were reviewed and were otherwise negative. Past Medical & Surgical Medical Problems: (1) Asthma (2) Encounter for sterilization (3) Gestational thrombocytopenia without hemorrhage in third trimester (4) Right knee sprain (5) Supervision of normal intrauterine in multigravida in third trimester (6) Threatened miscarriage Surgical Problems: (1) History of (2) Previous delivery affecting , antepartum Family History Patient reports no known family medical history. Social History Smoking Status: Never Smoker Alcohol Use: none Marital Status: Occupation Status: employed Current/Historical Medications Scheduled Doxycycline (Monohydrate) (Doxycycline), 1 TAB PO BID Methylergonovine Maleate (Methergine), 0.2 MG PO Q6H Multivit/Min/Iron/Fol Ac/Pren ( Vitamin), 1 TAB PO QAM Ondasetron Odt (Zofran Odt), 4 MG SL Q6H Scheduled PRN Ibuprofen (Ibuprofen), 600 MG PO Q4H PRN for Pain, VERGARA, Cramping, or Fever Oxycodone/Acetaminophen 5MG/325MG (Percocet 5MG/325MG), 1 TAB PO Q4H PRN for Pain - Pain Scale 1-5 Allergies Coded Allergies: Ciprofloxacin (Verified Adverse Reaction, Intermediate, NAUSEA, 12/28/16) Physical Exam Vital Signs Date Time Temp Pulse Resp B/P (MAP) Pulse Ox O2 Delivery O2 Flow Rate FiO2 12/28/16 19:35 58 15 139/83 96 12/28/16 17:34 57 14 127/81 100 Room Air 12/28/16 16:35 52 12/28/16 15:43 Room Air 12/28/16 15:22 37.2 73 19 124/81 99 Room Air Physical Exam GENERAL: Awake, alert, well-appearing, NAD, tearful HENT: Normocephalic, atraumatic. EYES: Normal conjunctiva. Sclera non-icteric. NECK: Supple. No nuchal rigidity. FROM. RESPIRATORY: CTAB, no rhonchi, wheezing, crackles CARDIAC: RRR, no MRG ABDOMEN: Soft, NTND, BS+ Consistent with recent , lower transverse incision is well healing with no erythema, tenderness, fluctuance, or purulence. MSK: No chest wall TTP, no LE edema NEURO: GCS 15, CN 2-12 intact, moves all 4s on command SKIN: No rash or jaundice noted, no petechiae, ecchymosis, erythema. PELVIC: Fair amount of clot burden in vaginal vault very dark. No vaginal tear. Cervix wasn't visualized. Medical Decision & Procedures Laboratory Results 12/28/16 15:15 Red Blood Count 4.42, Mean Corpuscular Volume 88.5, Mean Corpuscular Hemoglobin 29.2, Mean Corpuscular Hemoglobin Concent 33.0, Mean Platelet Volume 12.6, Neutrophils (%) (Auto) 69.9, Lymphocytes (%) (Auto) 21.8, Monocytes (%) (Auto) 5.0, Eosinophils (%) (Auto) 2.5, Basophils (%) (Auto) 0.2, Neutrophils # (Auto) 6.78, Lymphocytes # (Auto) 2.12, Monocytes # (Auto) 0.49, Eosinophils # (Auto) 0.24, Basophils # (Auto) 0.02 12/28/16 15:15 Test 12/28/16 15:15 12/28/16 17:30 White Blood Count 9.71 K/uL (4.8-10.8) Red Blood Count 4.42 M/uL (4.2-5.4) Hemoglobin 12.9 g/dL (12.0-16.0) Hematocrit 39.1 % (37-47) Mean Corpuscular Volume 88.5 fL (80-100) Mean Corpuscular Hemoglobin 29.2 pg (25-34) Mean Corpuscular Hemoglobin Concent 33.0 g/dl (32-36) Platelet Count 212 K/uL (130-400) Mean Platelet Volume 12.6 fL (7.4-10.4) Neutrophils (%) (Auto) 69.9 % Lymphocytes (%) (Auto) 21.8 % Monocytes (%) (Auto) 5.0 % Eosinophils (%) (Auto) 2.5 % Basophils (%) (Auto) 0.2 % Neutrophils # (Auto) 6.78 K/uL (1.4-6.5) Lymphocytes # (Auto) 2.12 K/uL (1.2-3.4) Monocytes # (Auto) 0.49 K/uL (0.11-0.59) Eosinophils # (Auto) 0.24 K/uL (0-0.5) Basophils # (Auto) 0.02 K/uL (0-0.2) RDW Standard Deviation 48.3 fL (36.4-46.3) RDW Coefficient of Variation 15.1 % (11.5-14.5) Immature Granulocyte % (Auto) 0.6 % Immature Granulocyte # (Auto) 0.06 K/uL (0.00-0.02) Prothrombin Time 9.6 SECONDS (9.0-12.0) Prothromb Time International Ratio 0.9 (0.9-1.1) Activated Partial Thromboplast Time 22.9 SECONDS (21.0-31.0) Partial Thromboplastin Ratio 0.9 Anion Gap 9.0 mmol/L (3-11) Est Creatinine Clear Calc Drug Dose 105.2 ml/min Estimated GFR () 105.8 Estimated GFR (Non- 91.3 BUN/Creatinine Ratio 16.3 (10-20) Calcium Level 9.0 mg/dl (8.5-10.1) Total Bilirubin 0.5 mg/dl (0.2-1) Aspartate Amino Transf (AST/SGOT) 33 U/L (15-37) Alanine Aminotransferase (ALT/SGPT) 52 U/L (12-78) Alkaline Phosphatase 151 U/L (45-117) Total Protein 7.5 gm/dl (6.4-8.2) Albumin 3.0 gm/dl (3.4-5.0) Globulin 4.5 gm/dl (2.5-4.0) Albumin/Globulin Ratio 0.7 (0.9-2) Urine Color RED Urine Appearance CLEAR (CLEAR) Urine pH 7.5 (4.5-7.5) Urine Specific [place] 1.018 (1.000-1.030) Urine Protein 2+ (NEG) Urine Glucose (UA) NEG (NEG) Urine Ketones NEG (NEG) Urine Occult Blood 3+ (NEG) Urine Nitrite NEG (NEG) Urine Bilirubin NEG (NEG) Urine Urobilinogen NEG (NEG) Urine Leukocyte Esterase MODERATE (NEG) Urine WBC (Auto) >30 /hpf (0-5) Urine RBC (Auto) >30 /hpf (0-4) Urine Hyaline Casts (Auto) 0 /lpf (0-5) Urine Epithelial Cells (Auto) >30 /lpf (0-5) Urine Bacteria (Auto) NEG (NEG) Urine Renal Epithelial Cells /lpf (0-5) Urine Pathogenic Casts /lpf (0) Urine Test NEG (NEG) Laboratory results reviewed by me Medications Administered Medications (Trade) Dose Ordered Sig/Erendira Route Start Time Stop Time Status Last Admin Dose Admin Ondansetron HCl (Zofran Inj) 4 mg NOW STAT IV 12/28/16 15:32 12/28/16 15:33 DC 12/28/16 16:25 4 MG Sodium Chloride 1,000 ml @ 999 mls/hr Q1H1M STAT IV 12/28/16 15:32 12/28/16 16:32 DC 12/28/16 16:27 999 MLS/HR Ketorolac Tromethamine (Toradol Inj) 30 mg NOW STAT IV 12/28/16 15:56 12/28/16 16:00 DC 12/28/16 16:25 30 MG Methylergonovine Maleate (Methergine Inj) 0.2 mg ONE STAT IM 12/28/16 15:56 12/28/16 16:00 DC 12/28/16 16:27 0.2 MG Cephalexin Monohydrate (Keflex Cap) 500 mg NOW ONCE PO 12/28/16 16:00 12/28/16 16:01 DC 12/28/16 16:25 500 MG Morphine Sulfate (MoRPHine SULFATE INJ) 6 mg NOW STAT IV 12/28/16 17:22 12/28/16 17:23 DC 12/28/16 17:51 6 MG Ceftriaxone Sodium (Rocephin Im) 250 mg NOW ONCE IM 12/28/16 18:30 12/28/16 18:33 DC 12/28/16 18:52 250 MG ED Course 1512: The patient was evaluated in room C11B. A complete history and physical exam was performed. 1552: I discussed the patient's case with Dr. Méndez, [facility]. He recommends that I give the patient Methargen and Toradol. 1800: I reevaluated the patient and she still reports some discomfort. 1840: I reevaluated the patient and discussed her results. I had a long conversation about her treatment plan and the family concluded that they would like to see K[facility]GER. 1845: I discussed the patient's case with Dr. Méndez, [facility]. He understands the patient's condition and agrees to accept the patient. The patient will be further evaluated. Medical Decision Differential diagnosis: Etiologies such as ectopic , dysfunction uterine bleeding, bleeding dyscrasia, trauma, infection, coagulopathy, and thrombocytopenia as well as others were entertained. Patient was seen and evaluated at the bedside. Patient did have a recent C- section and was recently seen in [facility] clinic for an incisional check which was fairly normal. Patient has complained of having some bright red and dark red clot whenever she stands up from a supine position. Patient did complain of some very mild lightheadedness. Patient has no tachycardia. Patient did have some gestational thrombocytopenia. Patient did have blood work as well as a UA and pelvic exam completed. I did speak with KITCHEN MANAGER system configuration specialist who recommended some Methergine Keflex for possible endometritis in addition to NSAIDs. Patient was given first dose of all these. She did have normal platelet count, coagulation studies, and hemoglobin. Patient was informed of these findings. Patient was still visibly concerned as were other family members after discussion and reassurance. Dr. Méndez returned to the bedside and agreed w/ POC. Patient was given strict follow-up, discharge, return precautions. Patient agreed with plan of care patient was safely discharged home. Medication Reconcilliation Current Medication List: was personally reviewed by me Blood Pressure Screening Patient's blood pressure: Normal blood pressure Consults Time Called: 1551 Consulting Physician: Dr. Méndez, [facility] Returned Call: 1551 I discussed the patient's case with Dr. Méndez, [facility]. He recommends that I give the patient Methargen and Toradol. Additional Consults: Time Called: 1844 Consulted Physician: Dr. Méndez, [facility] Returned Call: 1844 Additional Comments: I discussed the patient's case with Dr. Méndez, [facility]. He understands the patient's condition and agrees to accept the patient. The patient will be further evaluated. Impression Primary Impression: Vaginal bleeding Scribe Attestation The scribe's documentation has been prepared under my direction and personally reviewed by me in its entirety. I confirm that the note above accurately reflects all work, treatment, procedures, and medical decision making performed by me. Departure Information Dispostion Home / Self-Care Prescriptions Ondasetron Odt (ZOFRAN ODT) 4 Mg Tab 4 MG SL Q6H for Nausea, #6 TAB Prov: Edmond Willis M.D. 12/28/16 Doxycycline (Monohydrate) (Doxycycline) 100 Mg Cap 1 TAB PO BID for 14 Days, #28 TBS Prov: Edmond Willis M.D. 12/28/16 Methylergonovine Maleate (METHERGINE) 0.2 Mg Tab 0.2 MG PO Q6H, #8 TAB Prov: Edmond Willis M.D. 12/28/16 Referrals Rachael Tinajero M.D. (PCP) Matty Santoyo M.D. Patient Instructions ED Bleed Irregular Vaginal, My [facility] Additional Instructions Please return to the emergency department if you have worsening or recurrent symptoms not amenable to at-home treatment. Please call for a follow-up appointment with her primary care physician. Please take your medications as prescribed. If you have other concerns and/or complaints please feel free to also call your primary care physician's office or return the ED for further evaluation, management, and treatment. You may take 600 mg Ibuprofen every 6 hours as needed for pain with food for no more than 2 consecutive days. You may take tylenol 1000mg every 6 hours as needed for pain. You may take motrin and tylenol separately or at the same time. You have been examined and treated today on an emergency basis only. This is not a substitute for, or an effort to provide, complete comprehensive medical care. It is impossible to recognize and treat all injuries or illnesses in a single emergency department visit. It is therefore important that you follow up closely with [facility]. Call as soon as possible for an appointment. Thank you for your time and consideration. I look forward to speaking with you again soon. Please don't hesitate to call us if you have any questions.
[2016-12-28 15:44] LABS: BASO % 0.2 %; BASO ABS # 0.02 K/uL (0-0.2); COMPLETE YES; EOS % 2.5 %; HEMATOCRIT 39.1 % (37-47); IG% 0.6 %; LYMPH % 21.8 %; LYMPH ABS # 2.12 K/uL (1.2-3.4); MEAN CELL VOLUME 88.5 fL (80-100); MEAN CORPUSCULAR HEMOGLOBIN 29.2 pg (25-34); MEAN PLATELET VOLUME 12.6 fL (7.4-10.4); NEUT % 69.9 %; PLATELET COUNT 212 K/uL (130-400); RED BLOOD COUNT 4.42 M/uL (4.2-5.4); WHITE BLOOD COUNT 9.71 K/uL (4.8-10.8)
[2016-12-28 15:47] LABS: INR 0.9 (0.9-1.1); PARTIAL THROMBOPLASTIN RATIO 0.9; PROTHROMBIN TIME (PATIENT) 9.6 SECONDS (9.0-12.0)
[2016-12-28] MEDS ORDERED: KETOROLAC TROMETHAMINE 30 MG/ML VIAL IV STA (15:56)
[2016-12-28] MEDS ORDERED: METHYLERGONOVINE MALEATE 0.2 MG/ML AMP IM STA (15:56)
[2016-12-28] MEDS ORDERED: CEPHALEXIN MONOHYDRATE 250 MG CAP PO ONE (16:00)
[2016-12-28 16:01] LABS: BUN/CREATININE RATIO 16.3 (10-20); CREATININE 0.84 mg/dl (0.60-1.20)
[2016-12-28 16:04] LABS: ALB/GLOB RATIO 0.7 (0.9-2)
[2016-12-28] MEDS ORDERED: MoRPHine SULFATE 10 MG/ML CARP/VIAL IV STA (17:22)
[2016-12-28] MEDS ORDERED: DOXY-300 PO (18:26)
[2016-12-28] MEDS ORDERED: METH0.2T39 PO (18:26)
[2016-12-28] MEDS ORDERED: ONDA4TAB10 SL (18:26)
[2016-12-28] MEDS ORDERED: CEFTRIAXONE SOD 350MG/ML 1 GM VIAL IM ONE (18:30)
[2016-12-28 18:46] LABS: URINE APPEARANCE CLEAR (CLEAR); URINE COLOR RED; URINE EPITHELIAL CELL AUTO >30 /lpf (0-5); URINE NITRITE NEG (NEG); URINE PH 7.5 (4.5-7.5); URINE SPECIFIC GRAVITY 1.018 (1.000-1.030); UROBILINOGEN NEG (NEG)
[2016-12-28 18:54] LABS: MANUAL MICROSCOPIC REQUIRED? NO; REVIEW REQ? YES; SULFASALICYLIC ACID POS (NEG); URINE BILIRUBIN NEG (NEG)
[2016-12-28 19:35] VITALS: BP 139/83; PULSE 58; O2SAT 96
--- NOTE | 2016-12-28 21:17 | GYNECOLOGICAL CONSULTATION ---
DATE OF CONSULTATION: 12/28/2016 GYNECOLOGY CONSULTATION HISTORY OF PRESENT ILLNESS: Tanika had a on December 20. Course was complicated by some low platelet counts, but the patient was discharged with minimal bleeding and platelet counts increasing. She reports today some increased clots passing per vagina. She had actually gone several days without any bleeding at all and then noticed some dark clots passing. This worried her, so she went to the Emergency Room. She was assessed at that time and hemodynamically stable. Her hemoglobin was 12.9, white blood cell count 9.71, and platelet count 212. Coag studies were also normal. The patient reported no fever or tenderness or other concerns. PHYSICAL EXAMINATION: VITAL SIGNS: Stable. She is afebrile. ABDOMEN: Benign. Bowel sounds positive, nontender. Incision clean, dry, and intact. PELVIC: Reveals minimal dark blood from the vagina. Some small clots which are darker. Uterus is examined and nontender, not enlarged. IMPRESSION AND PLAN: Highly unlikely for retained products of conception at this stage after a . I also think an ultrasound will likely visualize clots and these will be hard to recognize with retained products, so at this time, I do not think ultrasound will increase diagnostic capability. Discussed the options, that may be causing the bleeding including some other possibility of mild endometritis. The patient is not overly symptomatic for this, but I will recommend to the ER, she be started on Keflex. We also discussed Methergine as well to be initiated. We discussed ibuprofen as well. In summary, the patient is hemodynamically stable with hemoglobin of 12.9. I have recommended outpatient treatment. Discussed if the patient worsen, she will contact us and she will come back to the Emergency Room. FAVIO
== END 2016-12-28 19:35 | disposition home or self-care (01) ==
LOC: EDBD 14:59 → C.EDC 15:00
DX: N93.9 Abnormal uterine and vaginal bleeding, unspecified (principal); J45.909 Unspecified asthma, uncomplicated; Z98.51 Tubal ligation status

== ENCOUNTER → 2016-12-28 | Outpatient (CLI) | payer BC ==
[~2016-12-28] MED LIST changes: -CEFAZOLIN IV 3,000 MG in DEXTROSE 5% 50ML IV SCH; -CITRIC ACID/SODIUM CITRATE 15 ML UDC PO SCH; +DOXY-300 PO; -LACTATED RINGER'S 1000ML 1,000 ML IV SCH; +METH0.2T39 PO; +MTR600X PO; +ONDA4TAB10 SL; +OXYC-57 PO; -PATIENT'S HEIGHT AND/OR WEIGHT NEEDED SCH
[2016-12-28 13:02] LABS: HEMATOCRIT 38.2 % (37-47); MEAN CELL VOLUME 88.4 fL (80-100); MEAN CORPUSCULAR HEMOGLOBIN 28.5 pg (25-34); MEAN CORPUSCULAR HGB CONC 32.2 g/dl (32-36); MEAN PLATELET VOLUME 13.1 fL (7.4-10.4); PLATELET COUNT 200 K/uL (130-400); RED BLOOD COUNT 4.32 M/uL (4.2-5.4); WHITE BLOOD COUNT 9.64 K/uL (4.8-10.8)
== END | disposition home or self-care (01) ==
LOC: C.LAB1850 11:00
PROVIDERS: ATTEND Obstetrics & Gynecology
DX: O99.113 Other diseases of the blood and blood-forming organs and certain disorders involving the immune mechanism complicating pregnancy, third trimester (principal); Z3A.00 Weeks of gestation of pregnancy not specified

== ENCOUNTER 2017-01-11 02:08 | Emergency (ER) | payer BC ==
[~2017-01-11] VITALS: Ht 167.6 cm; Wt 84.0 kg
[~2017-01-11 02:08] MED LIST changes: +DOXY-300 PO; +METH0.2T39 PO; +ONDA4TAB10 SL
[2017-01-11 02:09] VITALS: TEMP 36.9; Ht 167.6 cm; Wt 84.0 kg
[2017-01-11 02:44] LABS: BASO % 0.3 %; BASO ABS # 0.02 K/uL (0-0.2); COMPLETE YES; EOS % 4.3 %; HEMATOCRIT 40.1 % (37-47); IG% 0.3 %; LYMPH % 33.7 %; LYMPH ABS # 2.18 K/uL (1.2-3.4); MEAN CELL VOLUME 88.1 fL (80-100); MEAN CORPUSCULAR HEMOGLOBIN 27.7 pg (25-34); MEAN CORPUSCULAR HGB CONC 31.4 g/dl (32-36); MEAN PLATELET VOLUME 12.4 fL (7.4-10.4); MONO % 8.2 %; NEUT % 53.2 %; PLATELET COUNT 206 K/uL (130-400); RED BLOOD COUNT 4.55 M/uL (4.2-5.4); WHITE BLOOD COUNT 6.46 K/uL (4.8-10.8)
--- NOTE | 2017-01-11 02:52 | EMERGENCY ROOM VISIT NOTE ---
History Report prepared by Ramiro: Bryn Rome Under the Supervision of: Dr. Medina Elizabeth D.O. First contact with patient: 02:14 Chief Complaint: VAGINAL BLEEDING Stated Complaint: VAGINAL BLEED History of Present Illness The patient is a 32 year old female who presents to the Emergency Room with complaints of worsening vaginal bleeding and abdominal cramping that the patient has been experiencing for the past three days. When the patient attempted to use the restroom this morning she experienced a "gushing" of blood into the toilet. The patient was in the Emergency Department on the second of this month, 14 days ago for similar symptoms. The patient discussed her symptoms with Dr. Kayley FUNG three days ago and was placed on a 3 day course of Methergine. The patient woke up this morning with worsening cramping and pain across her uterine area. She has been taking Ibuprofen without relief. The patient had a Caesarean Section and Tubal Ligation on December 21, and has been experiencing the vaginal bleeding persistently since. Source of History: patient Onset: 3 days PALLET REPAIRER Position: other (Genitourinary) Quality: other (Vag bleed) Timing: worsening Note: Abdominal Cramping Review of Systems See HPI for pertinent positives & negatives. A total of 10 systems reviewed and were otherwise negative. Past Medical & Surgical Medical Problems: (1) Asthma (2) Encounter for sterilization (3) Gestational thrombocytopenia without hemorrhage in third trimester (4) Right knee sprain (5) Supervision of normal intrauterine in multigravida in third trimester (6) Threatened miscarriage Surgical Problems: (1) History of (2) Previous delivery affecting , antepartum Family History Patient reports no known family medical history. Social History Smoking Status: Never Smoker Alcohol Use: none Marital Status: Occupation Status: employed Current/Historical Medications Scheduled Multivit/Min/Iron/Fol Ac/Pren ( Vitamin), 1 TAB PO QAM Scheduled PRN Ibuprofen (Ibuprofen), 600 MG PO Q4H PRN for Pain, VERGARA, Cramping, or Fever Allergies Coded Allergies: Ciprofloxacin (Verified Adverse Reaction, Intermediate, NAUSEA, 01/11/17) Physical Exam Vital Signs Date Time Temp Pulse Resp B/P (MAP) Pulse Ox O2 Delivery O2 Flow Rate FiO2 01/11/17 04:43 75 12 100 01/11/17 04:30 118/88 01/11/17 04:28 68 17 100 01/11/17 04:13 54 12 99 01/11/17 04:08 60 17 98 01/11/17 04:01 119/70 01/11/17 03:56 129/77 01/11/17 03:53 52 18 99 01/11/17 03:38 57 14 98 01/11/17 03:29 129/77 01/11/17 03:23 50 19 98 Room Air 01/11/17 03:08 43 13 01/11/17 02:53 78 21 01/11/17 02:38 64 01/11/17 02:11 135/93 01/11/17 02:09 36.9 94 18 135/93 100 Room Air Physical Exam HEENT: Head - normocephalic and atraumatic Pupils are equal, round, and reactive to light. Extraocular eye muscles are intact, and sclera are anicteric. Nose - moist nasal mucosa without discharge. Mouth - moist buccal mucosa. Oropharynx is nonerythematous and there is no tonsillar exudate or edema noted. Neck: Supple; no JVD, nuchal rigidity, cervical lymphadenopathy. Heart: Regular rate and rhythm. There is a normal S1 and S2 with no murmurs, clicks, or gallops appreciated. Lungs: Clear to auscultation bilaterally with no wheezes, rales, or rhonchi. Abdomen: Soft, completely nontender, nondistended, with good bowel sounds. There are no palpable pulsatile masses or hepatosplenomegaly. There is no guarding, rigidity, or rebound noted. Extremities: No evidence of cyanosis, clubbing, or edema. There are easily palpable peripheral pulses. Skin: warm and dry with good turgor and no rashes. Speculum Exam: There was a small amount of old blood in the vaginal canal. A clot was present in the cervix. Medical Decision & Procedures Laboratory Results 01/11/17 02:27 Red Blood Count 4.55, Mean Corpuscular Volume 88.1, Mean Corpuscular Hemoglobin 27.7, Mean Corpuscular Hemoglobin Concent 31.4, Mean Platelet Volume 12.4, Neutrophils (%) (Auto) 53.2, Lymphocytes (%) (Auto) 33.7, Monocytes (%) (Auto) 8.2, Eosinophils (%) (Auto) 4.3, Basophils (%) (Auto) 0.3, Neutrophils # (Auto) 3.43, Lymphocytes # (Auto) 2.18, Monocytes # (Auto) 0.53, Eosinophils # (Auto) 0.28, Basophils # (Auto) 0.02 01/11/17 02:27 Test 01/11/17 02:27 White Blood Count 6.46 K/uL (4.8-10.8) Red Blood Count 4.55 M/uL (4.2-5.4) Hemoglobin 12.6 g/dL (12.0-16.0) Hematocrit 40.1 % (37-47) Mean Corpuscular Volume 88.1 fL (80-100) Mean Corpuscular Hemoglobin 27.7 pg (25-34) Mean Corpuscular Hemoglobin Concent 31.4 g/dl (32-36) Platelet Count 206 K/uL (130-400) Mean Platelet Volume 12.4 fL (7.4-10.4) Neutrophils (%) (Auto) 53.2 % Lymphocytes (%) (Auto) 33.7 % Monocytes (%) (Auto) 8.2 % Eosinophils (%) (Auto) 4.3 % Basophils (%) (Auto) 0.3 % Neutrophils # (Auto) 3.43 K/uL (1.4-6.5) Lymphocytes # (Auto) 2.18 K/uL (1.2-3.4) Monocytes # (Auto) 0.53 K/uL (0.11-0.59) Eosinophils # (Auto) 0.28 K/uL (0-0.5) Basophils # (Auto) 0.02 K/uL (0-0.2) RDW Standard Deviation 47.6 fL (36.4-46.3) RDW Coefficient of Variation 14.7 % (11.5-14.5) Immature Granulocyte % (Auto) 0.3 % Immature Granulocyte # (Auto) 0.02 K/uL (0.00-0.02) Anion Gap 8.0 mmol/L (3-11) Est Creatinine Clear Calc Drug Dose 84.0 ml/min Estimated GFR () 82.1 Estimated GFR (Non- 70.9 BUN/Creatinine Ratio 15.1 (10-20) Calcium Level 8.6 mg/dl (8.5-10.1) Laboratory results per my review. Medications Administered Medications (Trade) Dose Ordered Sig/Erendira Route Start Time Stop Time Status Last Admin Dose Admin Acetaminophen (Tylenol Tab) 1,000 mg NOW STAT PO 01/11/17 03:20 01/11/17 03:21 DC 01/11/17 03:29 1,000 MG Procedure Medications Ordered; Acetaminophen 1000 mg PO. ED Course 0239: Past medical records reviewed. The patient was evaluated in room A10. A complete history and physical exam was performed. An IV lock was initiated and labs were drawn as above. A specul exam was performed as described above.um 0320: Ordered Acetaminophen 1000 mg PO. 0438: Upon reevaluation, the patient was still concerned with her symptoms. I discussed findings and results with her. I agreed to call the on-call [facility] to consult. 0443: I discussed the case with Dr. Orellana - [facility], she agrees that the patient is okay to be discharged home. 0458: I discussed my consult call with the patient at this time. She will be discharged home. Medical Decision The patient is a 32 year old female who presents to the Emergency Department for vaginal bleeding. Differential Diagnosis include; Laboratory Results were reviewed and show; Hemoglobin stable at 12.6, no leukocytosis, normal renal function, normal glucose. This is a 32-year-old female patient who had a on December 21 . She's had persistent bleeding and cramping since that time. She just finished her second course of Methergine and had persistent abdominal cramping and vaginal bleeding which was concerning to her. On speculum exam, there was no bright red bleeding. In fact there was a very small amount of brown blood. I expanded the patient that this was reassuring. Her H/H was stable. Her vitals were stable. She seemed very concerned about the persistent abdominal cramping and the blood that came from the uterus. I did discuss the case with the on-call dump truck operator and they will see her in the office in follow-up. The patient was told to return to the emergency department immediately if she developed any lightheadedness as a result of the bleeding or if the bleeding became bright red. Medication Reconcilliation Current Medication List: was personally reviewed by me Blood Pressure Screening Patient's blood pressure: Normal blood pressure Consults Time Called: [phone] Consulting Physician: Dr. Esteban FUNG Returned Call: [phone] I discussed the case with Dr. Esteban FUNG, she agrees that the patient is okay to be discharged home. Impression Primary Impression: Abnormal vaginal bleeding Scribe Attestation The scribe's documentation has been prepared under my direction and personally reviewed by me in its entirety. I confirm that the note above accurately reflects all work, treatment, procedures, and medical decision making performed by me. Departure Information Dispostion Home / Self-Care Referrals Rachael Tinajero M.D. (PCP) Forms HOME CARE DOCUMENTATION FORM, IMPORTANT VISIT INFORMATION, WORK / SCHOOL INSTRUCTIONS Patient Instructions [facility] Additional Instructions Rest No strenuous activity. Return to the ER for continued bright red bleeding and/or lightheadedness. Follow up today by phone with radial drill press operator
[2017-01-11 02:58] LABS: BUN/CREATININE RATIO 15.1 (10-20); CALCIUM 8.6 mg/dl (8.5-10.1); CREATININE 1.03 mg/dl (0.60-1.20); POTASSIUM 3.8 mmol/L (3.5-5.1)
[2017-01-11] MEDS ORDERED: ACETAMINOPHEN 500 MG TAB PO STA (03:20)
[2017-01-11 04:30] VITALS: BP 118/88
[2017-01-11 04:43] VITALS: PULSE 75; O2SAT 100
== END 2017-01-11 04:51 | disposition home or self-care (01) ==
LOC: EDBD 02:08 → C.EDA 02:09
DX: N93.9 Abnormal uterine and vaginal bleeding, unspecified (principal); J45.909 Unspecified asthma, uncomplicated; Z87.59 Personal history of other complications of pregnancy, childbirth and the puerperium; Z98.891 History of uterine scar from previous surgery

== ENCOUNTER → 2017-10-27 | Outpatient (CLI) | payer OTHER ==
[~2017-10-27] MED LIST changes: -DOXY-300 PO; -METH0.2T39 PO; -ONDA4TAB10 SL; -OXYC-57 PO
== END | disposition home or self-care (01) ==
LOC: C.PAPS 14:05
PROVIDERS: ATTEND Obstetrics & Gynecology
DX: Z01.419 Encounter for gynecological examination (general) (routine) without abnormal findings (principal)